=== PATIENT | female | born 1950 | race Hispanic/Latino ===

== ENCOUNTER 2023-06-11 10:20 | Emergency (ER) | payer OTHER, SELFPAY ==
[2023-06-11 10:33] VITALS: BP 124/56
[2023-06-11 11:04] LABS: % Basophils 0.7 % (0-2); % Eosinophils 6.2 % (0-6); % Immature Granulocytes 0.3 % (0-0.5); % Lymphocytes 29.5 % (20.5-51.1); % Monocytes 6.1 % (1.7-9.3); % Neutrophils 57.2 % (42.2-75.2); Absolute Eosinophils 0.4 10^3/uL (0-0.7); Absolute Lymphocytes 1.7 10^3/uL (1.2-3.4); Absolute Monocytes 0.4 10^3/uL (0.1-0.6); Absolute Neutrophils 3.3 10^3/uL (1.4-6.5); Hematocrit 36.1 % (37.0-47.0); Hemoglobin 12.3 g/dL (12.0-16.0); Mean Corp Hgb Conc. 34.1 g/dL (33.0-37.0); Mean Corpuscular Hgb 31.9 pg (27.0-31.0); Mean Corpuscular Volume 93.8 fL (81.0-99.0); Nucleated Red Blood Cells % 0 %; Platelet Count 211 10^3/uL (130-400); Red Blood Cell Count 3.85 10^6/uL (4.20-5.40); Red Cell Dist. Width 13.1 % (11.5-14.5); White Blood Cell Count 5.8 10^3/uL (4.8-10.8)
[2023-06-11 11:18] LABS: ALT (SGPT) 20 U/L (0-35); AST (SGOT) 28 U/L (14-36); Albumin 4.2 g/dl (3.5-5.0); Alkaline Phosphatase 78 U/L (38-126); Blood Urea Nitrogen 25 mg/dl (7-17); Calcium 9.8 mg/dl (8.4-10.2); Carbon Dioxide 28 mmol/L (22-30); Chloride 104 mmol/L (98-107); Glucose 92 mg/dl (70-99); Lipase 112 U/L (23-300); Potassium 4.5 mmol/L (3.5-5.1); Sodium 137 mmol/L (135-145); Total Bilirubin 0.7 mg/dl (0.2-1.3); Total Protein 6.7 g/dl (6.3-8.2); eGFR > 60.00
--- NOTE | 2023-06-11 12:46 | ED.GENMED ---
History of Present Illness
General
Chief Complaint: Abdominal Pain
Source: patient and family
Exam Limitations: none
Time Seen by Provider: 06/11/23 12:34
Nursing documentation reviewed up to this point in time: agreed with
Travel History
Have you had any contact with someone who has COVID-19?: No
Do you have any symptoms of coronavirus? Fever > 100 degrees, chills, cough, shortness of breath, sore throat, loss of taste or smell, muscle aches, or headache?: No
History of Present Illness
History of Present Illness:
73 female accompanied by her daughter acting as html web developer she had a PEG placed in April she gets most of her nutrition for there is p.o. for pleasure, presents with pain on the inside with some constipation also feels some burning into her
throat, they spoke to the visiting nurses who recommended Tylenol today PCP recommended ER evaluation no fevers no vomiting no drainage daughter thinks the tube is working okay, denies any chest pain or shortness of breath
Past History
Past History
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
ED Past Surgical History: Brain (Hydrocephalus)
Social History
Tobacco: Non-smoker
Alcohol: None
Drug: None
Personal:
Living: with family
Employment: Retired
Family History
Family History: Other (Noncontributory)
Review of Systems
Review of Systems
All Other Systems: Not applicable
Constitutional: Reports fatigue; Denies fever
EENT: Reports no symptoms
Respiratory: Reports no symptoms
Cardiac: Reports no symptoms; Denies chest pain or palpitations
ABD/GI: Reports abdominal pain and constipated
: Reports no symptoms
Musculoskeletal: Reports no symptoms
Phy Exam
Physical Exam
Physical Exam:
Physical Exam
General: female nontoxic
Neck: No jaundice
Heart: s1/s2 regular rate and rhythm, no murmur. equal radial pulses.
Lungs: no acute respiratory distress. clear bilaterally
Abdomen: Soft, PEG in stoma appears clean dry and intact without any overt infectious symptoms
Neuro: alert and oriented. no focal neurological deficits
Skin: no rash
Psychiatric: cooperative
Extremities: no edema.
Course
Orders/Labs/Results
Orders:
Orders
06/11/23 10:41
Complete Blood Count/With Diff Urgent
Comprehensive Metabolic Panel Urgent
Lipase Urgent
06/11/23 12:43
0.9% Sodium Chloride 1000 ml [Nss] 1,000 ml IV BOLUS
Iohexol [Omnipaque] See Protocol PO NOW STA
Pantoprazole [Protonix IV] 40 mg IV NOW STA
06/11/23 12:49
EKG [Electrocardiogram (*1)] Routine
Reason for Study: Abdominal Pain
CT Abd/pelvis W Iv Cont Urgent
Comment:
Reason For Exam: Pain at PEG site
EKG- Treatment ONCE
Abnormal Lab Results
06/11/23
10:41
RBC 3.85 L 10^6/uL
(4.20-5.40)
Hct 36.1 L %
(37.0-47.0)
MCH 31.9 H pg
(27.0-31.0)
MPV 11.0 H fL
(7.4-10.4)
Eosinophils % 6.2 H %
(0-6)
BUN 25 H mg/dl
(7-17)
06/11/23 10:41
06/11/23 10:41
Vital Signs
Initial and Last Documented VS:
Initial Vital Signs
Temp Pulse Resp BP Pulse Ox
97.9 F 56 20 124/56 97
06/11/23 10:33 06/11/23 10:33 06/11/23 10:33 06/11/23 10:33 06/11/23 10:33
Last Documented Vital Signs
Temp Pulse Resp BP Pulse Ox
97.9 F 56 20 124/56 97
06/11/23 10:33 06/11/23 10:33 06/11/23 10:33 06/11/23 10:33 06/11/23 10:33
MDM/Problems Addressed
Differential Diagnosis Includes:
Gastritis GERD reflux pain nonspecific abdominal pain constipation infection
MDM/Problems Addressed:
Pain around the tube
Chronic conditions affecting care:
GERD
Acute Exacerbation and/or Progression of Chronic Illness:
GERD
*Radiology
Radiology exam reviewed: preliminary read by ED provider
*Pulse Oximetry
Patient hypoxic: no
*EKG
Interpreted by ED Provider?: Yes
Interpretation: normal
Comparison EKG: no comparison EKG present
Heart Rate: 78
Rate: normal
Rhythm: sinus
QRS Pattern: normal QRS
Ischemia: no ischemia
*Cra Interpretation
Rate: normal
Interpretation: normal
Heart Rate: 78
Rhythm: sinus
*Critical Care Note
Total Time (30-74mins, 75-104mins- exclusive of procedures): Not Applicable
Update Note
Update Note:
Update sounds like some localized pain on the inside of her stomach does have a history of GERD no systemic symptoms, I did review [facility] endoscopy notes no note of any significant pathology when the tube was placed we will try some Protonix check
scan, EKG
3:[address] report noted
Patient resting comfortably no emesis here stable vital signs reviewed reports findings with family is on Zantac, last bowel movement 3 days ago previously on Prilosec before the feeding tube was placed
ED Attending Note
-
Portions of this chart may have been created with voice recognition software.� Occasional wrong word or��sound alike� substitutions may have occurred due to the inherent limitations of voice recognition software.
Discharge Plan
Departure
Patient Disposition: Home (Routine Discharge)
Date of Disposition: 06/11/23
Time of Disposition: 15:33
Patient with high blood pressure during this ER visit?: No
Condition: Good
Discharge Problem:
Abdominal pain, Constipation
Instructions: Acid Reflux and GERD in Adults (DC), Abdominal Pain
Prescriptions:
New
Prilosec 10 mg susp,delayed release for recon
20 mg PO BID Qty: 30 6RF
polyethylene glycol 3350 [Miralax] 17 gram/dose powder
4 g PO DAILY PRN (Reason: Constipation) Qty: 238 0RF
No Action
levothyroxine 50 MCG tablet
50 mcg PO DAILY AT 0700
acetaminophen 325 MG tablet
650 mg PO Q4HPRN PRN (Reason: mild pain, head ache)
famotidine 40 mg Tablet
40 mg PO HS
esomeprazole magnesium [Nexium] 40 mg Capsule,Delayed Release(Dr/Ec)
40 mg PO DAILY@1200
rosuvastatin 10 mg Tablet
10 mg PO DAILY
Xiidra 5 % dropperette
1 drp BOTH EYES BID
nystatin 100,000 unit/mL Suspension
5 ml PO QID Qty: 250 0RF
Rx Instructions:
swish and spit
buspirone 5 mg Tablet
5 mg 2XD
melatonin 5 mg Tablet
5 mg PO HS PRN (Reason: sleep)
aspirin 81 mg Capsule
81 mg PO DAILY
Referrals:
Humberto Crowder MD [Family Provider] - Next open appointment
Interventions
Interventions:
*General Assessment Last Done: 06/11/23 14:25
*Neglect/Abuse Screening Last Done: 06/11/23 14:25
*ED COVID-19 Vaccine History Last Done: 06/11/23 14:25
LW-Zlhtox-Jhiweembut Assessment Last Done: 06/11/23 14:25
[2023-06-11] MEDS: NSS 1000 IV (13:04)
[2023-06-11] MEDS: PROTONIX IV 40 MG IV (13:05)
[2023-06-11 15:10] VITALS: BP 119/61
== END 2023-06-11 16:03 | disposition home or self-care (01) ==
LOC: EMR 10:20
PROVIDERS: Emergency Medicine; EMERGENCY PHYSICIAN Emergency Medicine; FAMILY PHYSICIAN Internal Medicine Geriatric Medicine
DX: R10.9 Unspecified abdominal pain (principal); K59.00 Constipation, unspecified; K21.9 Gastro-esophageal reflux disease without esophagitis; Z93.1 Gastrostomy status
CPT/HCPCS: 99285; 96374; 96361; 74177; 80053; 83690; 85025; 93005; Q9967

== ENCOUNTER → 2023-06-25 15:09 | Outpatient (REF) | payer MEDICARE, OTHER, SELFPAY ==
[2023-06-25 16:01] LABS: Urine Albumin Trace (Neg - Trace); Urine Bilirubin Negative (Negative); Urine Character Very Cloudy (Clear); Urine Color Yellow; Urine Glucose Negative (Negative); Urine Ketone Negative (Negative); Urine Leukocyte Trace (Negative); Urine Nitrite Positive (Negative); Urine Occult Blood Negative (Negative); Urine Urobilinogen Negative (Neg - 1+)
[2023-06-25 16:08] LABS: Urine Bacteria Many (Negative); Urine Red Blood Cell 0-2 /HPF (0-2)
== END ==
LOC: REG 15:09
PROVIDERS: ATTENDING PHYSICIAN Internal Medicine Hospice and Palliative Medicine; FAMILY PHYSICIAN Internal Medicine Geriatric Medicine
DX: N39.0 Urinary tract infection, site not specified (principal)
CPT/HCPCS: 81003; 81015; 87086; 87088; 87186

== ENCOUNTER → 2023-08-30 14:13 | Outpatient (REF) | payer MEDICARE, OTHER, SELFPAY ==
[2023-08-30 15:16] LABS: % Basophils 0.6 % (0-2); % Eosinophils 5.8 % (0-6); % Immature Granulocytes 0.5 % (0-0.5); % Lymphocytes 32.6 % (20.5-51.1); % Monocytes 7.3 % (1.7-9.3); % Neutrophils 53.2 % (42.2-75.2); Absolute Eosinophils 0.4 10^3/uL (0-0.7); Absolute Monocytes 0.5 10^3/uL (0.1-0.6); Absolute Neutrophils 3.3 10^3/uL (1.4-6.5); Hematocrit 35.4 % (37.0-47.0); Hemoglobin 12.3 g/dL (12.0-16.0); Mean Corp Hgb Conc. 34.7 g/dL (33.0-37.0); Mean Corpuscular Hgb 31.8 pg (27.0-31.0); Mean Corpuscular Volume 91.5 fL (81.0-99.0); Mean Platelet Volume 11.2 fL (7.4-10.4); Nucleated Red Blood Cells % 0 %; Platelet Count 179 10^3/uL (130-400); Red Blood Cell Count 3.87 10^6/uL (4.20-5.40); White Blood Cell Count 6.2 10^3/uL (4.8-10.8)
[2023-08-30 15:35] LABS: ALT (SGPT) 30 U/L (0-35); AST (SGOT) 35 U/L (14-36); Albumin 4.3 g/dl (3.5-5.0); Alkaline Phosphatase 91 U/L (38-126); Blood Urea Nitrogen 38 mg/dl (7-17); Carbon Dioxide 29 mmol/L (22-30); Chloride 98 mmol/L (98-107); Glucose 80 mg/dl (70-99); Potassium 4.6 mmol/L (3.5-5.1); Sodium 137 mmol/L (135-145); Total Bilirubin 0.3 mg/dl (0.2-1.3); Total Protein 6.7 g/dl (6.3-8.2); eGFR > 60.00
[2023-08-30 17:00] LABS: Urine Albumin Negative (Neg - Trace); Urine Bilirubin Negative (Negative); Urine Character Clear (Clear); Urine Color Yellow; Urine Glucose Negative (Negative); Urine Ketone Negative (Negative); Urine Leukocyte Negative (Negative); Urine Nitrite Positive (Negative); Urine Occult Blood Negative (Negative); Urine Specific Gravity 1.015 (<1.030); Urine Urobilinogen Negative (Neg - 1+)
[2023-08-30 17:16] LABS: Urine Bacteria Moderate (Negative); Urine Red Blood Cell 0-2 /HPF (0-2)
== END ==
LOC: REG 14:13
PROVIDERS: ATTENDING PHYSICIAN Internal Medicine
DX: E11.9 Type 2 diabetes mellitus without complications (principal); R53.83 Other fatigue; R42 Dizziness and giddiness; R82.90 Unspecified abnormal findings in urine; I95.9 Hypotension, unspecified
CPT/HCPCS: 36415; 80053; 81003; 81015; 85025

== ENCOUNTER → 2023-10-29 11:58 | Outpatient (REF) | payer MEDICARE, OTHER, SELFPAY | LOC: RAD 11:58 | PROVIDERS: ATTENDING PHYSICIAN Nurse Practitioner Family | DX: R35.0 Frequency of micturition (principal); R09.89 Other specified symptoms and signs involving the circulatory and respiratory systems; R11.10 Vomiting, unspecified; R06.89 Other abnormalities of breathing | CPT/HCPCS: 71046; 74177; Q9967 ==

== ENCOUNTER → 2023-11-05 14:06 | Outpatient (REF) | payer MEDICARE, OTHER, SELFPAY ==
[2023-11-05 14:38] LABS: Urine Albumin Negative (Neg - Trace); Urine Bilirubin Negative (Negative); Urine Character Clear (Clear); Urine Color Yellow; Urine Glucose Negative (Negative); Urine Ketone Negative (Negative); Urine Leukocyte Trace (Negative); Urine Nitrite Negative (Negative); Urine Occult Blood Negative (Negative); Urine Urobilinogen Negative (Neg - 1+)
[2023-11-05 15:12] LABS: Urine Squamous Cell >30 /LPF (Few)
[2023-11-05 15:14] LABS: Urine Bacteria Many (Negative); Urine Red Blood Cell 0-2 /HPF (0-2)
== END ==
LOC: REG 14:06
PROVIDERS: ATTENDING PHYSICIAN Nurse Practitioner Family
DX: R35.0 Frequency of micturition (principal)
CPT/HCPCS: 81003; 81015; 87086

== ENCOUNTER → 2024-01-20 15:36 | Outpatient (REF) | payer MEDICARE, SELFPAY ==
[2024-01-20 16:53] LABS: Urine Albumin Negative (Neg - Trace); Urine Bilirubin Negative (Negative); Urine Character Slightly Cloudy (Clear); Urine Color Yellow; Urine Glucose Negative (Negative); Urine Ketone Negative (Negative); Urine Leukocyte Negative (Negative); Urine Nitrite Negative (Negative); Urine Occult Blood Negative (Negative); Urine Urobilinogen Negative (Neg - 1+)
== END ==
LOC: REG 15:36
PROVIDERS: ATTENDING PHYSICIAN Internal Medicine Geriatric Medicine
DX: R30.0 Dysuria (principal); R53.1 Weakness
CPT/HCPCS: 36415; 81003; 87086

== ENCOUNTER → 2024-02-22 11:11 | Outpatient (REF) | payer MEDICARE, OTHER, SELFPAY ==
[2024-02-22 12:25] LABS: Urine Albumin Negative (Neg - Trace); Urine Bilirubin Negative (Negative); Urine Character Clear (Clear); Urine Color Yellow; Urine Glucose Negative (Negative); Urine Ketone Negative (Negative); Urine Leukocyte 2+ (Negative); Urine Nitrite Negative (Negative); Urine Occult Blood Negative (Negative); Urine Urobilinogen Negative (Neg - 1+)
[2024-02-22 12:46] LABS: Urine Bacteria Moderate (Negative); Urine Red Blood Cell 0-2 /HPF (0-2)
== END ==
LOC: REG 11:11
PROVIDERS: ATTENDING PHYSICIAN Internal Medicine Geriatric Medicine
DX: R30.0 Dysuria (principal)
CPT/HCPCS: 81003; 81015; 87086

== ENCOUNTER → 2024-03-14 12:51 | Outpatient (REF) | payer MEDICARE, OTHER, SELFPAY ==
[2024-03-14 14:06] LABS: Urine Albumin Negative (Neg - Trace); Urine Bilirubin Negative (Negative); Urine Character Clear (Clear); Urine Color Yellow; Urine Glucose Negative (Negative); Urine Ketone Negative (Negative); Urine Leukocyte Negative (Negative); Urine Nitrite Negative (Negative); Urine Occult Blood Negative (Negative); Urine Urobilinogen Negative (Neg - 1+)
== END ==
LOC: REG 12:51
PROVIDERS: ATTENDING PHYSICIAN Internal Medicine Geriatric Medicine
DX: E11.9 Type 2 diabetes mellitus without complications (principal); I10 Essential (primary) hypertension; E78.2 Mixed hyperlipidemia; I11.9 Hypertensive heart disease without heart failure; E03.8 Other specified hypothyroidism; K21.9 Gastro-esophageal reflux disease without esophagitis; D64.9 Anemia, unspecified; G12.21 Amyotrophic lateral sclerosis; E66.09 Other obesity due to excess calories; M85.89 Other specified disorders of bone density and structure, multiple sites; K59.09 Other constipation; E55.9 Vitamin D deficiency, unspecified; R41.3 Other amnesia; R26.89 Other abnormalities of gait and mobility; Z13.31 Encounter for screening for depression
CPT/HCPCS: 81003

== ENCOUNTER 2024-07-10 14:23 | Inpatient (IN) | payer MEDICARE, OTHER, SELFPAY ==
[2024-07-10] VITALS (16 sets, daily range): BP systolic 106–147; BP diastolic 59–87; PULSE 2–73; BMI 19.9; BMI 22.6
--- NOTE | 2024-07-10 12:03 | EDRN ---
Dr. Low currently at the pts bedside speaking with the pt daughter
--- NOTE | 2024-07-10 12:06 | EDRN ---
the pt was placed on non rebreather at 15L due to Sp02 not responding to 6L NC, Sp02 was in the 80's, with non rebreather Sp02 is 98%, respiratory was called for Bipap per Dr. Low
[2024-07-10] MEDS: DUONEB 3 ML INH ×2 (12:11→17:19)
--- NOTE | 2024-07-10 12:11 | ED.GENMED ---
History of Present Illness
General
Chief Complaint: Breathing Problem
Source: family and ambulance crew
Time Seen by Provider: 07/10/24 11:54
History of Present Illness
History of Present Illness:
74-year-old female brought to the emergency room by ambulance for hypoxia and poor respiratory effort. Patient has a known diagnosis of ALS. Family noted today she seemed to be breathing less than normal. They also felt like her secretions seemed
thicker than normal. Visiting nurse placed the patient on BiPAP and. She typically uses this on a as needed basis. Patient does have a PEG tube. She has expressed to her family she does not want a tracheostomy or permanent ventilator.
Past History
Past History
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
ED Past Surgical History: Brain (Hydrocephalus)
Social History
Tobacco: Non-smoker
Alcohol: None
Drug: None
Personal:
Living: with family
Employment: Retired
Family History
Family History: Other (Noncontributory)
Phy Exam
Physical Exam
Physical Exam:
General: Eyes open but nonresponsive
Vitals: Hypoventilating, hypoxic without supplemental oxygen
Head: Atraumatic
Eyes: Pupils equal, EOMI
Throat: Airway intact, no exudates
Neck: Trachea midline
Lungs: Decreased breath sounds due to poor respiratory effort
Heart: Regular rate, no murmurs
Abd: Soft, no apparent tenderness, feeding tube in place, No pulsatile mass
Neuro: No movement to commands or withdraw from pain
Skin: Warm, dry, no rash
Extremities: pulses equal b/l, no edema
Scores
Heart Failure Risk
Heart Failure Risk Score: Not Applicable
Course
Orders/Labs/Results
Orders:
Orders
07/10/24
Electrocardiogram (*1) Stat
Reason for Study: Chest Pain
Comment: DONE
07/10/24 12:06
Acetylcysteine 10% [Mucomyst 10%] 4 ml INH R NOW STA
Ipratropium/Albuterol Sulfate [Duoneb] 3 ml INH R NOW STA
CR Chest Portable - 1 View Urgent
Comment:
Reason For Exam: hypoxia
Reason Study Needs to be Portable: Unable to Transport
07/10/24 12:07
Bipap [RESP] Urgent
Patient to use own unit?: No
Inspiratory Pressure (cm H2O): 15
Expiratory Pressure (cm H2O): 5
07/10/24 12:11
Basic Metabolic Panel Urgent
COVID-19 Antigen Urgent
Source: Nasal Swab
Complete Blood Count/With Diff Urgent
Troponin I Urgent
Venous Blood Gas Urgent
%Oxygen/Room Air: 4L
Influenza A+B Rapid Molecular Urgent
ASHLEIGH Source: Nasal Swab
Specimen Description:
07/10/24 13:11
Ampicillin/Sulbactam 3 G [Unasyn] 3 gm 0.9% Sodium Chloride 100 ml [Nss] 100 ml IV NOW
Abnormal Lab Results
07/10/24
12:11
WBC 15.8 H 10^3/uL
(4.8-10.8)
RBC 4.02 L 10^6/uL
(4.20-5.40)
MCV 99.5 H fL
(81.0-99.0)
MCH 32.3 H pg
(27.0-31.0)
MCHC 32.5 L g/dL
(33.0-37.0)
Abs Immat Gran (auto) 0.1 H 10^3/uL
(0-0.05)
Absolute Neuts (auto) 13.5 H 10^3/uL
(1.4-6.5)
Absolute Lymphs (auto) 1.1 L 10^3/uL
(1.2-3.4)
Absolute Monos (auto) 0.9 H 10^3/uL
(0.1-0.6)
Immature Gran % 0.7 H %
(0-0.5)
Neutrophils % 85.6 H %
(42.2-75.2)
Lymphocytes % 7.2 L %
(20.5-51.1)
VBG pCO2 77 H* mmHg
(35-48)
VBG pO2 54 H mmHg
(30-50)
VBG HCO3 39.7 H mmol/L
(22-27)
Sodium 132 L mmol/L
(135-145)
Chloride 90 L mmol/L
(98-107)
Carbon Dioxide 39 H mmol/L
(22-30)
BUN 35 H mg/dl
(7-17)
Creatinine 0.4 L mg/dL
(0.6-1.0)
Glucose 202 H mg/dl
(70-99)
07/10/24 12:11
07/10/24 12:11
Vital Signs
Initial and Last Documented VS:
Initial Vital Signs
Temp Pulse Resp BP Pulse Ox
98.5 F 88 16 147/87 88
07/10/24 11:54 07/10/24 11:54 07/10/24 11:54 07/10/24 11:54 07/10/24 11:54
Last Documented Vital Signs
Temp Pulse Resp BP Pulse Ox
98.5 F 84 16 135/76 98
07/10/24 12:04 07/10/24 12:04 07/10/24 12:04 07/10/24 12:04 07/10/24 12:04
MDM/Problems Addressed
Differential Diagnosis Includes:
aspiration, viral illness, pneumonia, progression of dz
MDM/Problems Addressed:
Patient presents with decreased work of breathing and hypoxia. She did seem to i have some improvement to tolerate BiPAP. Discussed with the family what to do moving forward if the patient does not improve. The patient had made it clear to her
family she did not want to have a tracheostomy or have long-term ventilation. Given this wish I do not believe intubation would be with the patient with desire as it is most certainly going to lead to chronic ventilatory failure and the need for
tracheostomy. We agreed that we will treat the patient with BiPAP, IV antibiotics for potential pneumonia and other supportive care.
*Radiology
Radiology exam reviewed: preliminary read by ED provider and radiology read reviewed
*Pulse Oximetry
Patient hypoxic: yes
*Critical Care Note
Total Time (30-74mins, 75-104mins- exclusive of procedures): 38 min
comment:
Critical care statement: A total of 38 minutes of critical care time was provided for this patient. This includes management of unstable vital signs, evaluation of the patient at bedside, reviewing the patient�s pertinent medical records, discussion
with consultants, review of old EKGs and review of pertinent medical records. This time with separate from time utilized to perform the aforementioned documented procedures
Patient Management
Social determinants of health affecting care: Strong social support
ED Attending Note
-
Portions of this chart may have been created with voice recognition software.� Occasional wrong word or��sound alike� substitutions may have occurred due to the inherent limitations of voice recognition software.
Discharge Plan
Departure
Patient Disposition: Admit
Date of Disposition: 07/10/24
Time of Disposition: 13:09
Admit to: IMU
Presentation/result/management discussed w/ accepting MD/DO: Hospitalist
Condition: Serious
Discharge Problem:
ALS (amyotrophic lateral sclerosis), Respiratory failure
Prescriptions:
No Action
levothyroxine 50 MCG tablet
50 mcg feeding tube DAILY AT 0700
rosuvastatin 10 mg Tablet
10 mg feeding tube DAILY
aspirin 81 mg Tablet,Delayed Release (Dr/Ec)
81 mg feeding tube DAILY
acetaminophen [Tylenol Extra Strength] 500 mg Tablet
1,000 mg feeding tube BID
glycopyrrolate 1 mg Tablet
1 mg feeding tube TIDPRN PRN (Reason: secration)
Neurobion Tablet
1 tab feeding tube DAILY
riluzole 50 mg Tablet
50 mg feeding tube BID
estradiol [Estrace] 0.01 % (0.1 mg/gram) Cream
1 appful VAGINAL Q48H
escitalopram oxalate [Lexapro] 10 mg Tablet
10 mg feeding tube DAILY
guaifenesin 200 mg/5 mL Liquid
200 mg PO Q4HPRN PRN (Reason: cou)
Refresh Optive 0.5-0.9 % Drops
1 drp BOTH EYES BIDPRN PRN (Reason: dryness)
omeprazole 20 mg Tablet,Delayed Release (Dr/Ec)
20 mg PO BID
Rx Instructions:
peg tube
baclofen 5 mg Tablet
5 mg feeding tube HS
Referrals:
Humberto Crowder MD [Family Provider] -
Interventions
Interventions:
*Risk Screen - Suicide Last Done: 07/10/24 11:54
*General Assessment Last Done: 07/10/24 11:54
*Neglect/Abuse Screening Last Done: 07/10/24 11:54
ED- Fall Risk Assessment Last Done: 07/10/24 12:04
*ED COVID-19 Vaccine History Last Done: 07/10/24 12:04
ED- Cardiac Assessment Last Done: 07/10/24 12:04
ED- Pulmonary Assessment Last Done: 07/10/24 12:04
Discharge Date and Time
Print Language: H[place] KONGER
[2024-07-10] MEDS: MUCOMYST 10% 4 ML INH (12:12)
--- NOTE | 2024-07-10 12:18 | EDRN ---
respiratory at the pts bedside and the pt has been placed on Bipap 15/5 6L rate of 12 and Sp02 is currently 94%, the pts family is at the pts bedside
[2024-07-10 12:27] LABS: % Basophils 0.3 % (0-2); % Eosinophils 0.5 % (0-6); % Immature Granulocytes 0.7 % (0-0.5); % Lymphocytes 7.2 % (20.5-51.1); % Monocytes 5.7 % (1.7-9.3); % Neutrophils 85.6 % (42.2-75.2); Absolute Basophils 0.1 10^3/uL (0-0.2); Absolute Eosinophils 0.1 10^3/uL (0-0.7); Absolute Immature Granulocytes 0.1 10^3/uL (0-0.05); Absolute Lymphocytes 1.1 10^3/uL (1.2-3.4); Absolute Monocytes 0.9 10^3/uL (0.1-0.6); Absolute Neutrophils 13.5 10^3/uL (1.4-6.5); Mean Corp Hgb Conc. 32.5 g/dL (33.0-37.0); Mean Corpuscular Hgb 32.3 pg (27.0-31.0); Mean Corpuscular Volume 99.5 fL (81.0-99.0); Mean Platelet Volume 9.8 fL (7.4-10.4); Nucleated Red Blood Cells % 0 %; Platelet Count 259 10^3/uL (130-400); Red Blood Cell Count 4.02 10^6/uL (4.20-5.40); Red Cell Dist. Width 12.8 % (11.5-14.5); White Blood Cell Count 15.8 10^3/uL (4.8-10.8)
[2024-07-10 12:42] LABS: Blood Urea Nitrogen 35 mg/dl (7-17); Calcium 9.9 mg/dl (8.4-10.2); Carbon Dioxide 39 mmol/L (22-30); Chloride 90 mmol/L (98-107); Estimated Creatinine Clearance 69 ml/min; Glucose 202 mg/dl (70-99); Potassium 4.6 mmol/L (3.5-5.1); Sodium 132 mmol/L (135-145); eGFR > 60.00
[2024-07-10 12:43] LABS: Venous Blood Gas B.E. 10.2 mmol/L (-4 to +4); Venous Blood Gas HCO3 39.7 mmol/L (22-27); Venous Blood Gas O2 Sat % 82.7 %; Venous Blood Gas pH 7.32 (7.32-7.43); Venous Blood Gas pO2 54 mmHg (30-50)
[2024-07-10 12:45] LABS: Venous Blood Gas O2 Therapy 4L; Venous Blood Gas pCO2 77 mmHg (35-48)
[2024-07-10 12:46] LABS: COVID-19 Antigen Negative (Negative)
[2024-07-10 12:54] LABS: Troponin I < 0.012 ng/ml
--- NOTE | 2024-07-10 13:00 | EDRN ---
Dr. Low currently at the pts bedside
[2024-07-10] MEDS: UNASYN IV ×2 (13:21→19:45)
--- NOTE | 2024-07-10 13:38 | HPS.HSE ---
Addendum entered and electronically signed by Arvind Lai MD 07/10/24 15:32:
I saw and examined the patient.
The PREPLEATER or PA's note was reviewed and I agree with the note.
Comment:
74-year-old female with past medical history of polymyalgia rheumatica, hypothyroidism, type 2 diabetes, hypertension, hyperlipidemia, GERD, anxiety, ALS presented to us with short of breath, hypoxia at home. Patient was noted to have O2 in the mid
70s on room air without great improvement on BiPAP. Of note, has been having productive cough with dark sputum as per family. Further associated symptoms include night sweats, headache. Otherwise review of systems as per daughter when
unremarkable. Patient is nonverbal and therefore collateral given by family. Patient does take BiPAP as needed as needed when the family feels like it is needed. Is 96% on BiPAP, 6 L saturating 88%, blood pressure 113/69, respiratory rate 13,
pulse 79. Afebrile. Rhonchi noted on mid to left lower lung zones. COVID and influenza negative. White count 15.8, gas notable for pCO2 of 77., Sodium 132. Possible left basilar opacity which could be atelectasis or scarring versus
consolidation.
Plan�continue feeds although will need sacral BiPAP during feeding times. Continue BiPAP for now and overnight. Continue antibiotics, broaden if decompensating. Follow-up cultures. Continue nebulizers. Vest. CT chest with IV contrast to
evaluate. 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 Most likely secondary to pulmonary pathophysiology.
Original Note:
Family Physician
-
Family Physician: Humberto Crowder
Chief Complaint
-
cough
sob
History of Present Illness
74-year-old female with PMH for polymyalgia rheumatica, hypothyroidism, type 2 diabetes, hypertension, hyperlipidemia, GERD, anxiety, ALS presented to us with short of breath, hypoxia at home. Her oxygen was noted to be in 70s on room air with no
improvement on bi PAP. For past few days she has been having cough with thick dark brown sputum. Patient was complaining of headache denies dizzy or syncope. Patient denies chest pain. She was sweaty at night. Patient denied abdominal pain,
nausea, vomiting. She was having some diarrhea on Wednesday. denied dysuria hematuria. patient is non verbal and communicates with gesture. patient uses v pap as needed. patient is bed bound.
upon arrival, she is 92 on BiPAP. chest x ray with the impression of Ill-defined left basilar opacity which may represent a combination of atelectasis/scarring with small effusion or acute airspace consolidation also within the differential
Patient received Unasyn and nebulizer treatment in ER. Admitting for further management
Medical History
Past Medical History
Past Medical History: Reports Other
Additional Past Medical History:
Polymyalgia rheumatica
Hypothyroidism
Type 2 diabetes
Hypertension
Hyperlipidemia
Hypercalcemia
Headache syndrome
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
GERD
Hypertension
Anxiety
Hydrocephalus
Constipation
Memory loss
Balance disorder
ALS
Past Surgical History: Reports Other
Additional Past Surgical History:
DOCUMENTATION SUPERVISOR shunt placement
Shoulder surgery
Carpal tunnel surgery
Left ankle surgery
PEG tube placed
Social History
Tobacco: Non-smoker
Alcohol: None
Drug: None
Living: With Family
Family History
Family History: Not pertinent
Allergies / Home Medications
Allergies reflects when Allergies were last updated in [employer]..
Home Medications with original date entered in [employer].
Allergy/Medication List:
Allergies
Allergy/AdvReac Type Severity Reaction Status Date / Time
atorvastatin Allergy Rash Verified 06/11/23 10:35
codeine Allergy Unknown Verified 06/11/23 10:35
pollen extracts Allergy Unknown Verified 06/11/23 10:35
tree and shrub pollen Allergy Unknown Verified 06/11/23 10:35
Home Medications
levothyroxine 50 mcg tablet 50 mcg feeding tube DAILY AT 0700 Thyroid 01/22/17
rosuvastatin 10 mg tablet 10 mg feeding tube DAILY High Cholesterol 03/15/23
acetaminophen 500 mg tablet (Tylenol Extra Strength) 1,000 mg feeding tube BID 07/10/24
aspirin 81 mg tablet,delayed release 81 mg feeding tube DAILY 07/10/24
baclofen 5 mg tablet 5 mg feeding tube HS 07/10/24
carboxymethylcellulose 0.5 %-glycerin 0.9 % eye drops (Refresh Optive) 1 drp BOTH EYES BIDPRN PRN dryness 07/10/24
escitalopram oxalate 10 mg tablet (Lexapro) 10 mg feeding tube DAILY 07/10/24
estradiol 0.01% (0.1 mg/gram) vaginal cream (Estrace) 1 appful vaginal Q48H 07/10/24
glycopyrrolate 1 mg tablet 1 mg feeding tube TIDPRN PRN secration 07/10/24
guaifenesin 200 mg/5 mL oral liquid 200 mg PO Q4HPRN PRN cou 07/10/24
omeprazole 20 mg tablet,delayed release 20 mg PO BID 07/10/24
riluzole 50 mg tablet 50 mg feeding tube BID 07/10/24
vitamins B1 B6 B12 tablet 1 tab feeding tube DAILY 07/10/24
Review of Systems
-
Constitutional: Reports Night Sweats
EENT: Reports No Symptoms
Respiratory: Reports Cough and Trouble Breathing
Cardiac: Reports No Symptoms
Abdomen/GI: Reports No Symptoms
: Reports No Symptoms
Musculoskeletal: Reports No Symptoms
Skin: Reports No Symptoms
Neurological: Reports No Symptoms
Endocrine: Reports No Symptoms
Hematologic/Lymphatic: Reports No Symptoms
Psych: Reports No Symptoms
Physical Exam
Vital Signs
Vital Signs
Temp Pulse Resp BP Pulse Ox
98.5 F 84 16 135/76 98
07/10/24 12:04 07/10/24 12:04 07/10/24 12:04 07/10/24 12:04 07/10/24 12:04
Physical Exam
General: Well Developed, Well Nourished and No Apparent Distress
HEENT: NormoCephalic, Moist mucous membranes and Atraumatic
Respiratory: Rhonchi
Cardiac: S1/S2 and Regular Rhythm; No Murmur or Rub
GI: Soft, Non Tender, Non Distended and Normal Bowel Sounds; No Organomegaly
Rectal: Deferred by Provider
Musculoskeletal: No Clubbing, No Cyanosis and No Edema
Skin: No Rash
Neuro: AO x 3 and Nonfocal/grossly intact
Psych: Calm
Laboratory Results
-
07/10/24 12:11
07/10/24 12:11
Laboratory Results
Troponin I < 0.012 ng/ml 07/10/24 12:11
Data Reviewed
-
Diagnostic Radiology: Report Reviewed by me
Lab Data: Labs Reviewed by me
Impression/Plan
-
# Acute hypoxic respiratory failure likely secondary to left lower lobe infiltrate likely aspiration
-Patient is requiring BiPAP
-Unasyn continued
-WBCs 15.8
-COVID and flu negative
-Chest x-ray with impression of Ill-defined left basilar opacity which may represent a combination of atelectasis/scarring with small effusion or acute airspace consolidation also within the differential.Bilateral DOCUMENTATION SUPERVISOR shunt catheters.
-continue supplemental oxygen to keep sat greater than 92
-Wean as tolerated
-Nebs as needed for short of breath and wheezing
-sputum culture, legionella urine and strep pneumoniae
# Hyponatremia
-Sodium 132
-Continue to monitor
#Depression/anxiety
-Continue citalopram
#HLD: continue statin
#GERD
-Omeprazole continue
#hxt of ALS
-on riluzole
#Hypothyroidism: cont Levoxyl
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
#on Tube Feed Nutren 1.5 1 can four times a day.
nutrition consulted.
-pause Bipap, while on Tube feed.
FULL/Lovenox
--- NOTE | 2024-07-10 14:33 | EDRN ---
hospitalist currently at the pts bedside
--- NOTE | 2024-07-10 16:10 | EDRN ---
the pts orders have been processed, pharmacy notified by this RN
--- NOTE | 2024-07-10 17:49 | EDRN ---
this RN and Jodi RN entered the pts room and changed the pts brief and pad and repositioned the pt
[2024-07-10] MEDS: LOVENOX 40 MG SC (18:18)
--- NOTE | 2024-07-10 23:00 | PTCARENOTE ---
Rec'd pt from ER via stretcher on monitor & bipap accomp by RN & resp therapist, dtr at bedside & updated on care; pt nonverbal,no movement of extremities,blinks eyes only, nonverbal at baseline, SR, bp stable, + pulses, skin warm/dry, O2 via bipap
15/5 w/ 5 liters o2 , sat 96, lungs decr in bases, hypo bowel sounds, no bm, abd soft, peg clamped for meds,no vomiting, inc of urine- purewick placed
[2024-07-10] MEDS: LIORESAL 5 MG TUBE (23:34)
[2024-07-10] MEDS: DUONEB INH (23:59)
[2024-07-11] VITALS (26 sets, daily range): BP systolic 93–144; BP diastolic 50–77; PULSE 2–77; BMI 22.0
--- NOTE | 2024-07-11 | PTCARENOTE ---
JEMIMA eaton done, when doing property list , pt's dtr stated that the pt has a retainer when she got to the hospital, she stated that it was taken out in the ER, the retainer did not come up with pt, called the ER- it couldn't be found
[2024-07-11] MEDS: UNASYN IV ×4 (01:36→20:33)
[2024-07-11 03:49] LABS: Hematocrit 33.9 % (37.0-47.0); Hemoglobin 11.3 g/dL (12.0-16.0); Mean Corp Hgb Conc. 33.3 g/dL (33.0-37.0); Mean Corpuscular Hgb 32.1 pg (27.0-31.0); Mean Corpuscular Volume 96.3 fL (81.0-99.0); Mean Platelet Volume 10.1 fL (7.4-10.4); Platelet Count 238 10^3/uL (130-400); Red Blood Cell Count 3.52 10^6/uL (4.20-5.40); Red Cell Dist. Width 12.9 % (11.5-14.5); White Blood Cell Count 7.6 10^3/uL (4.8-10.8)
--- NOTE | 2024-07-11 04:00 | PTCARENOTE ---
santos reviewed, inc sanju amt urine,purewick replaced
[2024-07-11 04:14] LABS: Blood Urea Nitrogen 34 mg/dl (7-17); Calcium 9.9 mg/dl (8.4-10.2); Carbon Dioxide 36 mmol/L (22-30); Chloride 94 mmol/L (98-107); Estimated Creatinine Clearance 58 ml/min; Glucose 104 mg/dl (70-99); Potassium 4.2 mmol/L (3.5-5.1); Sodium 134 mmol/L (135-145); eGFR > 60.00
[2024-07-11] MEDS: SYNTHROID 50 MCG TUBE (05:25)
[2024-07-11] MEDS: DUONEB 3 ML INH ×4 (07:12→19:48)
--- NOTE | 2024-07-11 08:19 | VNURNOTE ---
Chart reviewed. Patient is [facility] with [facility], OT. Will continue to follow hospital course and DC plans.
--- NOTE | 2024-07-11 08:40 | CON.PUL ---
Consultation
Consultation Request
Date/Time Consultation Requested: 07/11/2024728
Date/Time Consultation Performed: 07/11/2024829
Requesting Provider: Dr. Lai
Performing Provider: Dr. Tracy
Reason for Consultation: Hypoxia
Medical History
-
Chief Complaint: Shortness of breath
History of Present Illness:
74-year-old female non-smoker with a past medical history of ALS, GERD, anxiety, DM type II, history of cryptococcal meningitis, hypothyroidism, hydrocephalus s/p SUBWAY GUARD shunt, history of sleep apnea and PMR who presents with shortness of breath.
Patient uses BiPAP at home. Also follows with palliative care. She was hypoxic at home with SpO2 in the mid 70s on room air without improvement on BiPAP. Also been having a productive cough with dark sputum as per family. She uses a BiPAP as
needed at home. In the ER she was afebrile to 98.5 �F, pulse rate 88, respiratory rate 16, BP 147/87 and saturating 88% on 6 L/min. Saturations improved to 98% on a nonrebreather. Labs showed leukocytosis to 15.8, Hb 13, blood gas with acute on
chronic hypercapnia with pH 7.32, pCO2 77, serum sodium 132, creatinine 0.4, glucose 202, troponin negative at <0.012, and COVID antigen negative. Flu A/B swab also negative and blood cultures were collected. CXR showed low lung volumes with
possible left basilar opacity. Subsequent CT chest showed a mild�moderately elevated left hemidiaphragm with compressive atelectasis with no obvious pneumonia. She was given nebulized acetylcysteine in the ER with DuoNebs and Unasyn. She was
admitted to the IMU for further care and pulmonary service consulted for additional management/recommendations.
When I saw the patient this morning she was resting in bed in no acute distress. Patient's roll repairer as well as the daughter, Madina, were at bedside. Patient is currently on 2 L/min nasal cannula saturating 94% with heart rate 88 and BP 117/75.
Patient has audible rhonchorous breath sounds although is in no acute distress. Patient is nonverbal as she is unable to phonate given her history of ALS. She was on BiPAP overnight on 15/5cmH2O bled with 5 L/min.
PMHx: DM type II, history of cryptococcal meningitis, hypothyroidism, hydrocephalus s/p SUBWAY GUARD shunt, mixed hyperlipidemia, sleep apnea, history of PMR, nonverbal due to ALS with significant respiratory muscle weakness, GERD, anxiety
PSHx: Shoulder surgery, carpal tunnel surgery, left ankle surgery due to a broken ankle, left SUBWAY GUARD shunt with revision (01/2017), right SUBWAY GUARD shunt (09/2017), PEG tube (03/2023)
Past Medical History
Past Medical History: Other (Above as per HPI)
Past Surgical History: Other (Above as per HPI)
Social History
Tobacco: Non-smoker
Alcohol: None
Drug: None
Family History
Family History: Other (Father: COPD; mother: Cirrhosis; Brother: Thyroid disease)
Allergies / Home Medications
Allergies
Allergy/AdvReac Type Severity Reaction Status Date / Time
atorvastatin Allergy Rash Verified 06/11/23 10:35
codeine Allergy Unknown Verified 06/11/23 10:35
pollen extracts Allergy Unknown Verified 06/11/23 10:35
tree and shrub pollen Allergy Unknown Verified 06/11/23 10:35
Home Medications
�Medication �Instructions �Recorded �Confirmed �Last Taken �Type
levothyroxine 50 mcg tablet 50 mcg feeding tube DAILY AT 0700 01/22/17 07/10/24 07/10/24 History
Thyroid
rosuvastatin 10 mg tablet 10 mg feeding tube DAILY High 03/15/23 07/10/24 07/10/24 History
Cholesterol
acetaminophen 500 mg tablet 1,000 mg feeding tube BID 07/10/24 07/10/24 07/10/24 History
(Tylenol Extra Strength)
aspirin 81 mg tablet,delayed 81 mg feeding tube DAILY 07/10/24 07/10/24 07/10/24 History
release
baclofen 5 mg tablet 5 mg feeding tube HS 07/10/24 07/10/24 Unknown History
carboxymethylcellulose 0.5 1 drp BOTH EYES BIDPRN PRN dryness 07/10/24 07/10/24 Unknown History
%-glycerin 0.9 % eye drops
(Refresh Optive)
escitalopram oxalate 10 mg tablet 10 mg feeding tube DAILY 07/10/24 07/10/24 07/10/24 History
(Lexapro)
estradiol 0.01% (0.1 mg/gram) 1 appful vaginal Q48H 07/10/24 07/10/24 Unknown History
vaginal cream (Estrace)
glycopyrrolate 1 mg tablet 1 mg feeding tube TIDPRN PRN 07/10/24 07/10/24 Unknown History
secration
guaifenesin 200 mg/5 mL oral liquid 200 mg PO Q4HPRN PRN cou 07/10/24 07/10/24 07/10/24 History
omeprazole 20 mg tablet,delayed 20 mg PO BID 07/10/24 07/10/24 07/10/24 History
release
riluzole 50 mg tablet 50 mg feeding tube BID 07/10/24 07/10/24 07/10/24 History
vitamins B1 B6 B12 tablet 1 tab feeding tube DAILY 07/10/24 07/10/24 07/10/24 History
Review of Systems
-
Unable to Obtain full review of systems at this time due to: Patient Non Verbal
Vitals / Labs / Diagnostic Testing
Vital Signs
Temp Pulse Resp BP Pulse Ox
98.9 F 42 12 93/55 93
07/11/24 08:11 07/11/24 07:17 07/11/24 07:17 07/11/24 06:03 07/11/24 07:41
Lab Data
07/11/24 03:17
07/11/24 03:17
Microbiology
07/11/24 00:19 Urine Legionella Urinary Antigen - Final
Negative for Legionella pneumophila Serogroup 1 antigen.
A negative result does not rule out the possiblity of
Legionella infection due to other serogroups or species of
Legionella. Clinical correlation is recommended.
07/11/24 00:19 Urine Streptococcus pneumoniae Antigen (M - Final
Negative for Streptococcus pneumoniae antigen.
A negative result does not exclude infection with
Streptococcus pneumoniae. Clinical correlation is
recommended.
07/10/24 12:11 Nasal Swab Influenza Types A & B (KARIE) - Final
Negative for Influenza A & B, NAAT
Negative results must be combined with clinical observations
and patient history.
Nucleic Acid Amplification test (NAAT)performed on the
[employer] platform.
Diagnostic Testing:
Physical Exam
-
HEENT: Normocephalic and Anicteric
Cardiovascular: S1/S2 and Peripheral Edema (negative)
Respiratory: Wheeze (negative), Rhonchi (negative), Non-Labored Respirations and Other (Coarse breath sounds heard bilaterally)
GI: Soft, Non Distended, Non Tender and Normal Bowel Sounds
Neurology: Awake, Alert and Tremors (negative)
Skin: Warm and Dry
General: Respiratory Distress (negative), Comfortable, Fever (negative) and Chills (negative)
Assessment
-
Assessment: 74-year-old female non-smoker with a past medical history of ALS, GERD, anxiety, DM type II, history of cryptococcal meningitis, hypothyroidism, hydrocephalus s/p SUBWAY GUARD shunt, history of sleep apnea and PMR who presents with shortness of
breath. Patient uses BiPAP at home. Also follows with palliative care. She was hypoxic at home with SpO2 in the mid 70s on room air without improvement on BiPAP. Also been having a productive cough with dark sputum as per family. She uses a
BiPAP as needed at home. In the ER she was afebrile to 98.5 �F, pulse rate 88, respiratory rate 16, BP 147/87 and saturating 88% on 6 L/min. Saturations improved to 98% on a nonrebreather. Labs showed leukocytosis to 15.8, Hb 13, blood gas with
acute on chronic hypercapnia with pH 7.32, pCO2 77, serum sodium 132, creatinine 0.4, glucose 202, troponin negative at <0.012, and COVID antigen negative. Flu A/B swab also negative and blood cultures were collected. CXR showed low lung volumes
with possible left basilar opacity. Subsequent CT chest showed a mild�moderately elevated left hemidiaphragm with compressive atelectasis with no obvious pneumonia. She was given nebulized acetylcysteine in the ER with DuoNebs and Unasyn. She was
admitted to the IMU for further care and pulmonary service consulted for additional management/recommendations.
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
Impression:
#Shortness of breath with suspected acute bronchitis/URI in setting of ALS
#Acute anemia
#Acute respiratory failure with hypoxia + hypercapnia
#Hypochloremic, hyponatremia
#Metabolic alkalosis as compensation for chronic respiratory acidosis
#ALS on BiPAP at home
#DM type II
#Reported history of sleep apnea
#History of PMR
#GERD
#Anxiety
#Hydrocephalus
Plan:
- Patient has no evidence of pneumonia on CT chest and appears to be experiencing acute bronchitis causing her shortness of breath/hypoxia in the setting of ALS
- Continue with antibiotics, currently on Unasyn
- Send off sputum Cx, and follow-up blood cultures collected on 07/10/2024
- Continue Robinul prn otherwise I will start scopolamine patch as long as secretions are thin
- Pulmonary toilet is hernandez � start nebulized 3% BID with prn 3% for additional assistance with expectoration with DuoNebs QID and deep NT suctioning after 3% treatments
- Continue with supplemental oxygen and maintain SpO2 >90-94%, weaning down O2 dose as tolerated
- Continue aspiration precautions keeping HOB >30-45�
- Patient gets nutrition through PEG tube which is okay to continue for now unless respiratory status deteriorates further
- prn nebulized bronchodilators - not currently bronchospastic
- Check NIF + vital capacity BID for now if pt can appropriately perform this testing
- Patient is currently refusing tracheostomy at this time
- Trend blood gas to assure pH and pCO2 remain stable
- Continue riluzole
- Continue to trend serum sodium with goal 135�145
- Replete electrolytes with K>4, Mg>2
- Trend H/H and transfuse if needed to keep Hb>7g/dL; keep plt>20k, unless there is concern for bleeding then keep plt>50k
- Maintain euglycemia with goal BG >100 and <180
- DVT ppx
Pulmonary service will continue to follow along.
Data:
CT chest with IV contrast 07/10/2024: Low lung volumes with mild to moderate elevation of the left hemidiaphragm causing compressive atelectasis on the left lower lobe, and mild bibasilar subsegmental atelectasis.
Total time spent today was 58 minutes for this encounter. Time includes reviewing laboratory test/imaging results, reviewing pertinent medical records, obtaining and reviewing medical history, performing an appropriate exam, ordering medications,
tests and procedures. Time also includes documentation of this encounter, coordinating patient care and communicating with other healthcare professionals. Total time does not include separately billed tests performed on this date of service.
[2024-07-11] MEDS: CRESTOR 10 MG TUBE (08:41)
[2024-07-11] MEDS: B COMPLEX w/VITAMIN C 1 CAPLET TUBE (08:41)
[2024-07-11] MEDS: ASPIR LOW (ENTERIC COATED) 81 MG PO (08:41)
[2024-07-11] MEDS: LEXAPRO 10 MG TUBE (08:41)
[2024-07-11 09:02] LABS: Venous Blood Gas B.E. 11.4 mmol/L (-4 to +4); Venous Blood Gas HCO3 37.8 mmol/L (22-27); Venous Blood Gas O2 Sat % 97.9 %; Venous Blood Gas pCO2 57 mmHg (35-48); Venous Blood Gas pH 7.43 (7.32-7.43); Venous Blood Gas pO2 157 mmHg (30-50)
--- NOTE | 2024-07-11 10:20 | PTCARENOTE ---
pt opens eyes. nonverbal. nc2l. breath sounds diminished. peg tube in place bolus feeding given. pt daughters at bedside reviewed pt condition and plan of care. pt family brought in bolus tube feed.
--- NOTE | 2024-07-11 12:55 | PTCARENOTE ---
nt suctioned pt for some thick yellow. sample sent to lab
[2024-07-11] MEDS: SODIUM CHLORIDE 3% FOR INHALATION 1 VIAL INH ×2 (14:16→19:47)
--- NOTE | 2024-07-11 14:42 | W.PN.HOSP.TC ---
Today's Communication/Plan
-
nebs
can cont abx for now
stop glycopyrrolate
Vest therapy
pulm consulted
BiPAP at night
Assessment / Plan
Assessment / Plan
Physical Exam
General: Well Developed, Well Nourished and No Apparent Distress; on 2L NC
HEENT: NormoCephalic, Moist mucous membranes and Atraumatic
Respiratory: Rhonchi
Cardiac: S1/S2 and Regular Rhythm; No Murmur or Rub
GI: Soft, Non Tender, Non Distended and Normal Bowel Sounds; No Organomegaly
Rectal: Deferred by Provider
Musculoskeletal: No Clubbing, No Cyanosis and No Edema
Skin: No Rash
Neuro: non verbal
Psych: Calm
# Acute hypoxic and and probable acute on chronic hypercapnic respiratory failure
� Rapidly improved with BiPAP at night
� Suspect secondary to bronchitis with thick secretions along with possible underlying BIA
� CT imaging with atelectasis, no evidence of pneumonia
� At high risk of aspiration
� Improved aeration, gases upon BiPAP at night
� Can continue empiric antibiotics
� Follow-up sputum cultures
� Continue DuoNebs
� COVID and flu negative
� Continue wean O2
�Pulmonary consulted for follow-up outpatient
#History of ALS
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
�-on riluzole
�Educated family on risk of BiPAP with weakness, acknowledge and accepts risk of BiPAP on patient
� Family refusing tracheostomy at this time
�Family acknowledges if patient does decompensate on BiPAP, will opt for comfort
# Hyponatremia
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
-Continue to monitor
#Depression/anxiety
-Continue citalopram
#HLD: continue statin
#GERD
-Omeprazole continue
#hxt of ALS
-on riluzole
#Hypothyroidism: cont Levoxyl
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
#on Tube Feed Nutren 1.5 1 can four times a day.
nutrition consulted.
-pause Bipap, while on Tube feed.
FULL/Lovenox
Total time spent on today's encounter was 50 minutes which included time spent in counseling the patient/family regarding diagnosis and treatment plan as listed above, goals of care, and symptom management. Case was discussed with nursing staff,
specialists, and care coordinators/case management. All labs and imaging personally reviewed by me. Remainder the time spent in detailed review of previous records, lab data, imaging, and other medical provider documentation.
Anticipated Discharge: 24 - 48 hours
Subjective/Interval History
-
Date of Service: July 11, 2024
no acute events, off bipap with improvement in o2 sats and hypercarbia; does have thick secretions
Objective Data
-
Labs:
Laboratory Results
07/11/24
03:17
WBC 7.6
Hgb 11.3 L
Hct 33.9 L
Plt Count 238
Sodium 134 L
Potassium 4.2
Chloride 94 L
Carbon Dioxide 36 H
BUN 34 H
Creatinine 0.4 L
Glucose 104 H
Calcium 9.9
Vital Signs:
Vital Signs
Temp Pulse Resp BP Pulse Ox
98.1 F 93 14 117/75 94
07/11/24 11:30 07/11/24 14:30 07/11/24 14:30 07/11/24 13:00 07/11/24 14:19
I&O
07/10/24 07/11/24 07/12/24
06:59 06:59 06:59
Intake Total 220 / 220 780 / 780
Output Total 150 / 150
Balance 70 / 70 780 / 780
Review of Systems
-
History Source: Patient
All other systems: Not reviewed unless documented
Data Reviewed
-
Total Time Spent with Patient (in minutes): 44
CT Scan: Report Reviewed by me
Labs: Labs Reviewed by me
--- NOTE | 2024-07-11 14:53 | CM ---
Patient with Hx ALS and PEG with Dx Acute hypoxic and probable acute on chronic hypercapnic respiratory failure. O2 2L. Receiving IV Abx. PT/OT Evals pending. Per nursing; patient is non-verbal.
Spoke with patient's daughter Samantha;
the patient resides with her Dtr Samantha, son in law and grand-Dtr in a 3 story house with first floor bedroom.
Patient was alert, non-verbal at baseline.
The patient requires total care and has 24 hour caregivers, including daughter and private caregivers: M-F 10-6, Fri & Sun night, Sat 5 hours. Daughter is applying for caregivers through the Waiver program.
The patient has been sleeping in a regular bed bed, daughter plans on ordering hospital bed today- offered to order and Dtr wants to do this herself to get the features she wants.
Patient is turned in bed by caregivers, assisted to get up to recliner, power w/c, manual w/c.
The patient receives Nutren tube feeds via PEG 4x/day.
DME - NIV (machine not working, new one ordered), BiPAP, Cough Assist, Suction, PEG feeds, Power &manual w/c, meliton lift (caregivers still learning how to operate). Patient does not have home O2.
Current with [facility] for PT/OT
Has Palliative Care
Prior [facility]
PCP - Humberto Crowder
Pharmacy - [facility]
Daughter requests ambulance transport home.
Plan watch for any O2 needs at d/c.
Plan home with resumption [facility].
[2024-07-11] MEDS: PROTONIX IV 40 MG IV (15:44)
[2024-07-11] MEDS: NSS (PRESERVATIVE FREE) 10 ML IV (15:44)
[2024-07-11] MEDS: LOVENOX 40 MG SC (17:38)
--- NOTE | 2024-07-11 20:15 | RESPNOTE ---
NIF and Vital capacity attempted with assistance of family member, pt was unable to create seal around the mouth piece and follow instructions to preform
[2024-07-11] MEDS: LIORESAL 5 MG TUBE (20:33)
[2024-07-11] MEDS: NON-FORMULARY ITEM 50 MG TUBE (21:24)
[2024-07-12] VITALS (14 sets, daily range): BP systolic 116–131; BP diastolic 53–75; PULSE 2–93
[2024-07-12] MEDS: UNASYN IV ×3 (03:43→14:57)
[2024-07-12 04:21] LABS: Venous Blood Gas HCO3 36.8 mmol/L (22-27); Venous Blood Gas O2 Sat % 98.1 %; Venous Blood Gas pCO2 53 mmHg (35-48); Venous Blood Gas pH 7.45 (7.32-7.43); Venous Blood Gas pO2 195 mmHg (30-50)
[2024-07-12 04:22] LABS: Venous Blood Gas O2 Therapy 6L/min
[2024-07-12 04:23] LABS: Hematocrit 34.3 % (37.0-47.0); Hemoglobin 11.4 g/dL (12.0-16.0); Mean Corp Hgb Conc. 33.2 g/dL (33.0-37.0); Mean Corpuscular Hgb 32.1 pg (27.0-31.0); Mean Corpuscular Volume 96.6 fL (81.0-99.0); Platelet Count 226 10^3/uL (130-400); Red Blood Cell Count 3.55 10^6/uL (4.20-5.40); Red Cell Dist. Width 12.8 % (11.5-14.5); White Blood Cell Count 12.2 10^3/uL (4.8-10.8)
[2024-07-12 04:50] LABS: Blood Urea Nitrogen 30 mg/dl (7-17); Carbon Dioxide 35 mmol/L (22-30); Chloride 98 mmol/L (98-107); Estimated Creatinine Clearance 58 ml/min; Glucose 134 mg/dl (70-99); Potassium 3.8 mmol/L (3.5-5.1); Sodium 138 mmol/L (135-145); eGFR > 60.00
[2024-07-12] MEDS: SYNTHROID 50 MCG TUBE (05:31)
--- NOTE | 2024-07-12 06:36 | PTCARENOTE ---
No acute events overnight. Daughter at bedside. Remained on the BIPAP.
[2024-07-12] MEDS: DUONEB 3 ML INH ×4 (07:27→19:51)
[2024-07-12] MEDS: SODIUM CHLORIDE 3% FOR INHALATION 1 VIAL INH ×2 (07:27→19:51)
--- NOTE | 2024-07-12 07:38 | RESPNOTE ---
NIF/VC-patient unable due to inability to create adequate seal on mouthpiece for results
[2024-07-12] MEDS: LEXAPRO 10 MG TUBE (08:45)
[2024-07-12] MEDS: ASPIR LOW (ENTERIC COATED) 81 MG PO (08:45)
[2024-07-12] MEDS: CRESTOR 10 MG TUBE (08:45)
[2024-07-12] MEDS: B COMPLEX w/VITAMIN C 1 CAPLET TUBE (08:45)
[2024-07-12] MEDS: NON-FORMULARY ITEM 1 MG TUBE (08:46)
[2024-07-12] MEDS: PROTONIX IV 40 MG IV (08:47)
[2024-07-12] MEDS: NSS (PRESERVATIVE FREE) 10 ML IV (08:48)
--- NOTE | 2024-07-12 09:13 | PTCARENOTE ---
Pt AAO non verbal daughters at bedside. VSS pt at 30 degrees post bolous feed and meds. ABT running
--- NOTE | 2024-07-12 10:06 | PTOTSP ---
Reviewed chart and s/w family. Pt is dependent for care, family does PROM, and was getting home therapies to instruct family in use of Marisa lift and power chair. No acute rehab needs. Will sign off.
--- NOTE | 2024-07-12 14:23 | W.PN.HOSP.TC ---
Today's Communication/Plan
-
f/u pulm recs
niv qhs, family understands risks including as patient cannot safely take off NIV
echo
Assessment / Plan
Assessment / Plan
Physical Exam
General: Well Developed, Well Nourished and No Apparent Distress; on 2L NC
HEENT: NormoCephalic, Moist mucous membranes and Atraumatic
Respiratory: Rhonchi
Cardiac: S1/S2 and Regular Rhythm; No Murmur or Rub
GI: Soft, Non Tender, Non Distended and Normal Bowel Sounds; No Organomegaly
Rectal: Deferred by Provider
Musculoskeletal: No Clubbing, No Cyanosis and No Edema
Skin: No Rash
Neuro: non verbal
Psych: Calm
# Acute hypoxic and and probable acute on chronic hypercapnic respiratory failure
� Rapidly improved with BiPAP at night
� Suspect secondary to bronchitis with thick secretions along with possible underlying BIA
� CT imaging with atelectasis, no evidence of pneumonia
� At high risk of aspiration
� Improved aeration, gases upon BiPAP at night
� Can continue empiric antibiotics
� Follow-up sputum cultures
� Continue DuoNebs
� COVID and flu negative
� Continue wean O2
�Pulmonary consulted for follow-up outpatient
-chest therapy
-le dopplers negative
#History of ALS
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
�-on riluzole
�Educated family on risk of BiPAP with weakness, acknowledge and accepts risk of BiPAP on patient
� Family refusing tracheostomy at this time
�Family acknowledges if patient does decompensate on BiPAP, will opt for comfort
# Hyponatremia
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
-Continue to monitor
#Depression/anxiety
-Continue citalopram
#HLD: continue statin
#GERD
-Omeprazole continue
#hxt of ALS
-on riluzole
#Hypothyroidism: cont Levoxyl
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
#on Tube Feed Nutren 1.5 1 can four times a day.
nutrition consulted.
-pause Bipap, while on Tube feed.
FULL/Lovenox
Anticipated Discharge: Within 24 hours
Subjective/Interval History
-
Date of Service: July 12, 2024
no acute events
Objective Data
-
Labs:
Laboratory Results
07/12/24
04:12
WBC 12.2 H
Hgb 11.4 L
Hct 34.3 L
Plt Count 226
Sodium 138
Potassium 3.8
Chloride 98
Carbon Dioxide 35 H
BUN 30 H
Creatinine 0.4 L
Glucose 134 H
Calcium 10.0
Vital Signs:
Vital Signs
Temp Pulse Resp BP Pulse Ox
98.8 F 86 16 122/61 94
07/12/24 11:30 07/12/24 11:08 07/12/24 11:08 07/12/24 10:00 07/12/24 11:00
I&O
07/11/24 07/12/24 07/13/24
06:59 06:59 06:59
Intake Total 220 / 220 1370 / 1370
Output Total 150 / 150 1150 / 1150
Balance 70 / 70 220 / 220
Review of Systems
-
History Source: Patient
All other systems: Not reviewed unless documented
Data Reviewed
-
Total Time Spent with Patient (in minutes): 44
CT Scan: Report Reviewed by me
Labs: Labs Reviewed by me
--- NOTE | 2024-07-12 14:39 | W.PN.PUL3 ---
Today's Communication / Plan
-
Continue BiPAP 15/5-bedtime and as needed
Monitor mental status
DC Unasyn-transition to cefepime-Pseudomonas in the sputum. Follow sensitivities
Continue secretion clearance intervention
Aspiration precaution
No need for further NIF or FVC monitoring patient unable to perform maneuver
Updated DNR status after discussion with daughters
Will follow
Assessment
-
Assessment: 74-year-old female non-smoker with a past medical history of ALS, GERD, anxiety, DM type II, history of cryptococcal meningitis, hypothyroidism, hydrocephalus s/p FILTER WORKER shunt, history of sleep apnea and PMR who presents with shortness of
breath. Patient uses BiPAP at home. Also follows with palliative care. She was hypoxic at home with SpO2 in the mid 70s on room air without improvement on BiPAP. Also been having a productive cough with dark sputum as per family. She uses a
BiPAP as needed at home. In the ER she was afebrile to 98.5 �F, pulse rate 88, respiratory rate 16, BP 147/87 and saturating 88% on 6 L/min. Saturations improved to 98% on a nonrebreather. Labs showed leukocytosis to 15.8, Hb 13, blood gas with
acute on chronic hypercapnia with pH 7.32, pCO2 77, serum sodium 132, creatinine 0.4, glucose 202, troponin negative at <0.012, and COVID antigen negative. Flu A/B swab also negative and blood cultures were collected. CXR showed low lung volumes
with possible left basilar opacity. Subsequent CT chest showed a mild�moderately elevated left hemidiaphragm with compressive atelectasis with no obvious pneumonia. She was given nebulized acetylcysteine in the ER with DuoNepapito and Unasyn. She was
admitted to the IMU for further care and pulmonary service consulted for additional management/recommendations.
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
Impression:
#Shortness of breath with suspected acute bronchitis/URI in setting of ALS
#Acute anemia
#Acute respiratory failure with hypoxia + hypercapnia
#Hypochloremic, hyponatremia
#Metabolic alkalosis as compensation for chronic respiratory acidosis
#ALS on BiPAP at home
#DM type II
#Reported history of sleep apnea
#History of PMR
#GERD
#Anxiety
#Hydrocephalus
Plan:
- Patient has no evidence of pneumonia on CT chest and appears to be experiencing acute bronchitis causing her shortness of breath/hypoxia in the setting of ALS
- Continue with antibiotics, currently on Unasyn D#3-will switch to cefepime 07/12/2024 until Pseudomonas sensitivities available.
-Sputum culture positive with Pseudomonas aeruginosa's 07/11/2024
-Legionella and Streptococcus antibodies urine antigens negative.
-Blood cultures negative
-Influenza negative
Continue secretion clearance interventions:
- Pulmonary toilet is hernandez � start nebulized 3% BID with prn 3% for additional assistance with expectoration with DuoNebs QID and deep NT suctioning after 3% treatments
- Continue with supplemental oxygen and maintain SpO2 >90-94%, weaning down O2 dose as tolerated
- Continue aspiration precautions keeping HOB >30-45�
- Patient gets nutrition through PEG tube which is okay to continue for now unless respiratory status deteriorates further
- prn nebulized bronchodilators - not currently bronchospastic
- NIF + vital capacity-patient unable to perform maneuver. Discontinue.
- Patient is currently refusing tracheostomy at this time
- Trend blood gas to assure pH and pCO2 remain stable
Chronic Hypercapnic respiratory failure due to neuromuscular weakness/ALS.
CT scan noted 07/10/2024: Low lung volumes. Mild to moderate elevation of the left hemidiaphragm. Compressive atelectasis of the left lower lobe. No evidence for pneumonia
Decompensating in the setting of bronchitis.
Continue BiPAP as able with naps and at bedtime. May be also used as needed for increased work of breathing
ABG 07/12/2024: 7.45/53/195 (improved)
Avoid sedatives
- Continue riluzole
- Continue to trend serum sodium with goal 135�145
- DVT ppx
Pulmonary service will continue to follow along.
-
Dr. Israel updated 2 daughters at the bedside in detail. 07/12/2024
Discussed with them goals of care. DNR has been instituted.
Data:
CT chest with IV contrast 07/10/2024: Low lung volumes with mild to moderate elevation of the left hemidiaphragm causing compressive atelectasis on the left lower lobe, and mild bibasilar subsegmental atelectasis.
Subjective Data
-
Date of Service:
Date of Service: July 12, 2024
Chief Complaint: Pulmonary Follow Up (Acute hypercapnic respiratory failure.)
Subjective:
No new complaints
Review of Systems
Cardiopulmonary: Dyspnea and Dyspnea on Exertion
Objective Data
Data Reviewed
Vital Signs / I&O / Oxygen:
Vital Signs
Temp Pulse Resp BP Pulse Ox
98.8 F 86 16 122/61 94
07/12/24 11:30 07/12/24 11:08 07/12/24 11:08 07/12/24 10:00 07/12/24 11:00
Intake and Output
07/11/24 07/12/24 07/13/24
06:59 06:59 06:59
Intake Total 220 / 220 1370 / 1370
Output Total 150 / 150 1150 / 1150
Balance 70 / 70 220 / 220
SaO2 94
Nasal Cannula flow liters per 2
minute
Labs/Micro/Reports
Lab Data
07/12/24 04:12
07/12/24 04:12
Microbiology
07/11/24 12:36 Sputum Respiratory Culture - Preliminary
Pseudomonas aeruginosa
07/11/24 12:36 Sputum Gram Stain - Preliminary
07/10/24 16:44 Blood/Venous Blood Culture - Preliminary
No Growth in 24 hours- Final report to follow
07/10/24 16:44 Blood/Venous Blood Culture - Preliminary
No Growth in 24 hours- Final report to follow
07/11/24 00:19 Urine Legionella Urinary Antigen - Final
Negative for Legionella pneumophila Serogroup 1 antigen.
A negative result does not rule out the possiblity of
Legionella infection due to other serogroups or species of
Legionella. Clinical correlation is recommended.
07/11/24 00:19 Urine Streptococcus pneumoniae Antigen (M - Final
Negative for Streptococcus pneumoniae antigen.
A negative result does not exclude infection with
Streptococcus pneumoniae. Clinical correlation is
recommended.
07/10/24 12:11 Nasal Swab Influenza Types A & B (KARIE) - Final
Negative for Influenza A & B, NAAT
Negative results must be combined with clinical observations
and patient history.
Nucleic Acid Amplification test (NAAT)performed on the
[employer] platform.
[2024-07-12] MEDS: STERILE WATER FOR INJECTION 10 ML IV ×2 (15:30→21:13)
[2024-07-12] MEDS: MAXIPIME 1000 MG IV ×2 (15:31→21:13)
--- NOTE | 2024-07-12 16:03 | CM ---
Patient with Hx ALS and PEG with Dx Acute hypoxic and probable acute on chronic hypercapnic respiratory failure. O2 2L. BiPAP. Positive sputum culture- new IV Abx ordered today. Home O2 Assessment ordered- to be done when closer to d/c. PT:
Therapy not warranted.
Spoke with patient's daughter Samantha; the patient's new NIV machine will be delivered to their home by [email or web address]. Daughter aware that patient will need Home O2 assessment prior to d/c- she agrees to home O2 through [email or web address] if needed.
Daughter requests ambulance transport home.
Spoke with BRENDA Moreau Liaison; she will arrange home O2 through [facility] if O2 is needed at d/c.
Plan watch for any O2 needs at d/c.
Plan home with resumption [id number].
[2024-07-12] MEDS: LOVENOX 40 MG SC (17:47)
[2024-07-12] MEDS: NON-FORMULARY ITEM 50 MG TUBE (21:12)
[2024-07-12] MEDS: LIORESAL 5 MG TUBE (21:13)
[2024-07-13] VITALS (9 sets, daily range): BP systolic 106–140; BP diastolic 53–77; PULSE 2–90
[2024-07-13] MEDS: MAXIPIME 1000 MG IV ×2 (04:16→09:01)
[2024-07-13] MEDS: STERILE WATER FOR INJECTION 10 ML IV ×2 (04:16→09:01)
[2024-07-13 04:25] LABS: Hematocrit 33.3 % (37.0-47.0); Hemoglobin 11.1 g/dL (12.0-16.0); Mean Corp Hgb Conc. 33.3 g/dL (33.0-37.0); Mean Corpuscular Hgb 32.5 pg (27.0-31.0); Mean Corpuscular Volume 97.4 fL (81.0-99.0); Mean Platelet Volume 10.2 fL (7.4-10.4); Platelet Count 209 10^3/uL (130-400); Red Blood Cell Count 3.42 10^6/uL (4.20-5.40); Red Cell Dist. Width 12.8 % (11.5-14.5); White Blood Cell Count 9.4 10^3/uL (4.8-10.8)
[2024-07-13 04:42] LABS: Blood Urea Nitrogen 34 mg/dl (7-17); Calcium 9.9 mg/dl (8.4-10.2); Carbon Dioxide 35 mmol/L (22-30); Chloride 102 mmol/L (98-107); Estimated Creatinine Clearance 58 ml/min; Glucose 118 mg/dl (70-99); Potassium 4.2 mmol/L (3.5-5.1); Sodium 138 mmol/L (135-145); eGFR > 60.00
[2024-07-13] MEDS: SYNTHROID 50 MCG TUBE (05:50)
--- NOTE | 2024-07-13 06:28 | PTCARENOTE ---
No acute events overnight. Remained on Bipap 15/5 2 liters. Daughter at bedside participating in care.
[2024-07-13] MEDS: DUONEB 3 ML INH (07:21)
[2024-07-13] MEDS: SODIUM CHLORIDE 3% FOR INHALATION 1 VIAL INH (07:21)
[2024-07-13] MEDS: B COMPLEX w/VITAMIN C 1 CAPLET TUBE (08:47)
[2024-07-13] MEDS: LEXAPRO 10 MG TUBE (08:49)
[2024-07-13] MEDS: CRESTOR 10 MG TUBE (08:49)
[2024-07-13] MEDS: NSS (PRESERVATIVE FREE) 10 ML IV (08:49)
[2024-07-13] MEDS: PROTONIX IV 40 MG IV (08:50)
[2024-07-13] MEDS: LOW STRENGTH ASPIRIN 81 MG TUBE (09:07)
[2024-07-13] MEDS: NON-FORMULARY ITEM 50 MG TUBE (09:07)
--- NOTE | 2024-07-13 10:28 | W.PN.PUL3 ---
Today's Communication / Plan
-
Now critically ill
Transition to high flow oxygen
Hold BiPAP due to aspiration
Continue cefepime
If patient will continue with care and there is no progression to comfort as the patient is discussing with the rest of the family will add metronidazole
Hold tube feeding
Will place left lung down
Continue secretion clearance interventions
Poor prognosis
Assessment
-
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
breath. Patient uses BiPAP at home. Also follows with palliative care. She was hypoxic at home with SpO2 in the mid 70s on room air without improvement on BiPAP. Also been having a productive cough with dark sputum as per family. She uses a
BiPAP as needed at home. In the ER she was afebrile to 98.5 �F, pulse rate 88, respiratory rate 16, BP 147/87 and saturating 88% on 6 L/min. Saturations improved to 98% on a nonrebreather. Labs showed leukocytosis to 15.8, Hb 13, blood gas with
acute on chronic hypercapnia with pH 7.32, pCO2 77, serum sodium 132, creatinine 0.4, glucose 202, troponin negative at <0.012, and COVID antigen negative. Flu A/B swab also negative and blood cultures were collected. CXR showed low lung volumes
with possible left basilar opacity. Subsequent CT chest showed a mild�moderately elevated left hemidiaphragm with compressive atelectasis with no obvious pneumonia. She was given nebulized acetylcysteine in the ER with Rodrigo and Vaishnavi. She was
admitted to the IMU for further care and pulmonary service consulted for additional management/recommendations.
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
Impression:
#Shortness of breath with suspected acute bronchitis/URI in setting of ALS
#Acute anemia
#Acute respiratory failure with hypoxia + hypercapnia
#Hypochloremic, hyponatremia
#Metabolic alkalosis as compensation for chronic respiratory acidosis
#ALS on BiPAP at home
#DM type II
#Reported history of sleep apnea
#History of PMR
#GERD
#Anxiety
#Hydrocephalus
Plan:
-Unfortunately, now critically ill 07/13/2024- Acute aspiration event.
Hypoxemic down to the 70s.
Multiple attempts to NT suctioning without success.
Despite 100% FiO2 pulse ox remains in the 80s. Patient has increased work of breathing, accessory muscle usage.
I was emergently called to evaluate her.
We did oral suctioning and tube feedings were suctioned from her airways.
Stat chest x-ray performed: Showed new right lower lobe pneumonia. Severe. Small amount of left lower lobe infiltrate as well. No pneumothorax.
Not a candidate for BiPAP due to aspiration
Patient is noncommunicative
Daughter at the bedside: Unfortunately not many options at this point.
As previously mentioned, She is DNR-tracheotomy not an option.
Keep head of the bed elevation
Based on chest x-ray we will place left lung down.
Transition to high flow oxygen.
Suggest morphine for her increased work of breathing. She likely is becoming more hypercapnic.
Daughter will discuss with rest of family members I discussed whether comfort measures will be next step.
-
- Patient has no evidence of pneumonia on CT chest and appears to be experiencing acute bronchitis causing her shortness of breath/hypoxia in the setting of ALS
- Continue with antibiotics, currently on Unasyn D#3-
switched to cefepime 07/12/2024 until Pseudomonas sensitivities available.
If family would like to continue with care then we will add metronidazole to regimen.
-Sputum culture positive with Pseudomonas aeruginosa's 07/11/2024
-Legionella and Streptococcus antibodies urine antigens negative.
-Blood cultures negative
-Influenza negative
Continue secretion clearance interventions:
- Pulmonary toilet is hernandez �continue nebulized 3% BID with prn 3% for additional assistance with expectoration with DuoNebs QID and deep NT suctioning after 3% treatments
- Continue aspiration precautions keeping HOB >30-45�
- Patient gets nutrition through PEG tube which is okay to continue for now unless respiratory status deteriorates further
- prn nebulized bronchodilators - not currently bronchospastic
- NIF + vital capacity-patient unable to perform maneuver. Discontinue.
-No need to repeat blood gas as BiPAP at this point is contraindicated and there is no option for intubation. Continue symptomatic care.
Chronic Hypercapnic respiratory failure due to neuromuscular weakness/ALS.
CT scan noted 07/10/2024: Low lung volumes. Mild to moderate elevation of the left hemidiaphragm. Compressive atelectasis of the left lower lobe. No evidence for pneumonia
Decompensating in the setting of bronchitis.
Hold BiPAP as above per
ABG 07/12/2024: 7.45/53/195 (improved)
Avoid sedatives
- Continue riluzole
- DVT ppx
Pulmonary service will continue to follow along.
-
Dr. Israel updated 2 daughters at the bedside in detail. 07/12/[address] Israel extensively updated daughter at the bedside 07/13/2024 about critical situation. Poor prognosis. Recommending some morphine to decrease work of breathing. She will discuss with the rest of the family.
Discussed with them goals of care. DNR has been instituted.
-
Critical care statement: A total of 35 minutes of critical care time was provided for this patient today. This includes management of unstable vital signs, evaluation of the patient at bedside, reviewing the patient's pertinent medical records
including ventilator settings, arterial blood gases, radiographs, microbiology, laboratory evaluations and discussion with primary team, critical care nursing, and respiratory therapy.
-
Data:
CT chest with IV contrast 07/10/2024: Low lung volumes with mild to moderate elevation of the left hemidiaphragm causing compressive atelectasis on the left lower lobe, and mild bibasilar subsegmental atelectasis.
Subjective Data
-
Date of Service:
Date of Service: July 13, 2024
Chief Complaint: Pulmonary Follow Up (Acute hypercapnic respiratory failure.)
Subjective:
Patient noncommunicative at baseline
I was emergently called to see her at the bedside- Due to acute worsening hypoxemia. Possibly aspiration.
Review of Systems
General: Other (Unable to obtain, patient noncommunicative at baseline)
Objective Data
Data Reviewed
Vital Signs / I&O / Oxygen:
Vital Signs
Temp Pulse Resp BP Pulse Ox
97.9 F 83 14 106/53 94
07/13/24 07:30 07/13/24 07:29 07/13/24 07:29 07/13/24 06:00 07/13/24 07:29
Intake and Output
07/12/24 07/13/24 07/14/24
06:59 06:59 06:59
Intake Total 1370 / 1370 1210 / 1210
Output Total 1150 / 1150
Balance 220 / 220 1210 / 1210
SaO2 94
Nasal Cannula flow liters per 2
minute
Physical Exam
General: Respiratory Distress (Severe)
HEENT: Normocephalic
Cardiovascular: S1-S2
Respiratory: Crackles, Rhonchi and Accessory Resp Muscle Use (Severe)
GI: Soft and Non Distended
Neurology: Awake, Other ( poor cough effort) and Other (Noncommunicative)
Labs/Micro/Reports
Lab Data
07/13/24 04:09
07/13/24 04:09
Microbiology
07/11/24 12:36 Sputum Respiratory Culture - Final
Pseudomonas aeruginosa
07/11/24 12:36 Sputum Gram Stain - Final
07/10/24 16:44 Blood/Venous Blood Culture - Preliminary
No Growth in 48 hours- Final report to follow
07/10/24 16:44 Blood/Venous Blood Culture - Preliminary
No Growth in 48 hours- Final report to follow
07/11/24 00:19 Urine Legionella Urinary Antigen - Final
Negative for Legionella pneumophila Serogroup 1 antigen.
A negative result does not rule out the possiblity of
Legionella infection due to other serogroups or species of
Legionella. Clinical correlation is recommended.
07/11/24 00:19 Urine Streptococcus pneumoniae Antigen (M - Final
Negative for Streptococcus pneumoniae antigen.
A negative result does not exclude infection with
Streptococcus pneumoniae. Clinical correlation is
recommended.
07/10/24 12:11 Nasal Swab Influenza Types A & B (KARIE) - Final
Negative for Influenza A & B, NAAT
Negative results must be combined with clinical observations
and patient history.
Nucleic Acid Amplification test (NAAT)performed on the
[employer] platform.
--- NOTE | 2024-07-13 10:58 | W.PN.UPDATE ---
Update Note
Progress Note Update
Discussed with 2 daughters at the bedside. Unfortunately patient not responding well. Increased work of breathing.
They discussed with the rest of the family and they would like to proceed with comfort measures.
Morphine has been added.
Primary team updated.
Will discontinue unnecessary medications
Okay with oxygen
No additional recommendation from the pulmonary perspective.
[2024-07-13] MEDS: MORPHINE SULFATE 2 MG IV ×5 (11:04→22:59)
[2024-07-13] MEDS: DUONEB INH (11:14)
--- NOTE | 2024-07-13 12:17 | PTCARENOTE ---
Assumed care of patient at beginning of this shift from previous RN with daughter at bedside. Morning meds given. Patient non-verbal but was able to smile when daughter mentioned grandsons name. At approximately 10:00, daughter came to this nurse as
patient's POx dropped to the 70s. NRB placed on patient; RT called to room who attempted to suctioned but had difficulty passing suction catheter. Dr Israel on unit and came to room. Stat portable CXR done and read at bedside by Dr Israel. Other
family members came to room; Dr Israel spoke with them. Morphine 2mg then ordered and given. Dr Lai up on unit; comfort measures now ordered.
--- NOTE | 2024-07-13 13:22 | PTCARENOTE ---
Patient incontinent of bowel and bladder; cleaned and repositioned for comfort. Heart monitor and pulse ox removed at family request.
[2024-07-13] MEDS: ATIVAN 0.5 MG IV ×2 (13:54→22:09)
--- NOTE | 2024-07-13 15:27 | W.PN.HOSP.TC ---
Today's Communication/Plan
-
Comfort care measures
Assessment / Plan
Assessment / Plan
Physical Exam
General: Well Developed, Well Nourished and No Apparent Distress; on 2L NC
HEENT: NormoCephalic, Moist mucous membranes and Atraumatic
Respiratory: Rhonchi
Cardiac: S1/S2 and Regular Rhythm; No Murmur or Rub
GI: Soft, Non Tender, Non Distended and Normal Bowel Sounds; No Organomegaly
Rectal: Deferred by Provider
Musculoskeletal: No Clubbing, No Cyanosis and No Edema
Skin: No Rash
Neuro: non verbal
Psych: Calm
# Acute hypoxic and and probable acute on chronic hypercapnic respiratory failure
#Tracheobronchitis
� Rapidly improved with BiPAP at night
� Hold antibiotics
� Aspirin this morning, 07/13�mid 70%
� Appreciate pulmonary on board
� Transition to comfort after discussion with family
#History of ALS
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
�-on riluzole
�Educated family on risk of BiPAP with weakness, acknowledge and accepts risk of BiPAP on patient
� Family refusing tracheostomy at this time
�Family acknowledges if patient does decompensate on BiPAP, will opt for comfort
# Hyponatremia
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
-Continue to monitor
#Depression/anxiety
-Continue citalopram
#HLD: continue statin
#GERD
-Omeprazole continue
#hxt of ALS
-on riluzole
#Hypothyroidism: cont Levoxyl
#Hx of cryptococcal meningitis s/p bilateral BUSINESS PROFESSOR shunts
#on Tube Feed Nutren 1.5 1 can four times a day.
nutrition consulted.
-pause Bipap, while on Tube feed.
FULL/Lovenox
Dispo�transition to comfort
Anticipated Discharge: Within 24 hours
Subjective/Interval History
-
Date of Service: July 13, 2024
Patient noted to be desaturating in the 70s, found to have aspirated
Objective Data
-
Labs:
Laboratory Results
07/13/24
04:09
WBC 9.4
Hgb 11.1 L
Hct 33.3 L
Plt Count 209
Sodium 138
Potassium 4.2
Chloride 102
Carbon Dioxide 35 H
BUN 34 H
Creatinine 0.4 L
Glucose 118 H
Calcium 9.9
Vital Signs:
Vital Signs
Temp Pulse Resp BP Pulse Ox
97.9 F 94 14 140/77 93
07/13/24 07:30 07/13/24 13:00 07/13/24 13:00 07/13/24 12:00 07/13/24 13:00
I&O
07/12/24 07/13/24 07/14/24
06:59 06:59 06:59
Intake Total 1370 / 1370 1210 / 1210
Output Total 1150 / 1150
Balance 220 / 220 1210 / 1210
Review of Systems
-
History Source: Patient
All other systems: Not reviewed unless documented
Data Reviewed
-
Total Time Spent with Patient (in minutes): 44
CT Scan: Report Reviewed by me
Labs: Labs Reviewed by me
--- NOTE | 2024-07-13 16:18 | PTCARENOTE ---
Patient was given ativan earlier; currently resting comfortably. Family at bedside. They declined for RT to decrease oxygen. Dr Lai in to talk with the family. Per Dr Lai, other family members are flying here today and they would like to
wait before starting morphine drip.
--- NOTE | 2024-07-13 16:51 | CM ---
Patient with Hx ALS and PEG with Dx Acute hypoxic and probable acute on chronic hypercapnic respiratory failure. High flow O2. Comfort measures.
Met with patient's daughter Samantha; she says she met with bolt maker today and feels supported by the staff and their family that is gathering at the bedside.
Plan comfort care.
[2024-07-13] MEDS: TYLENOL 650 MG PO (23:48)
[2024-07-14] MEDS: MORPHINE SULFATE 2 MG IV ×6 (00:05→13:41)
[2024-07-14] MEDS: MORPHINE 100 IV (00:38)
--- NOTE | 2024-07-14 01:47 | PTCARENOTE ---
Patient actively dying with family at bedside. High flow nasal cannula weaned to 2 liters NC. PRN morphine and ativan given. Started on step 1 of morphine gtt. Patient with agonal breathing and due to be transferred to [facility]. Family very upset that
patient being moved at this time. Emotional support provided and patient transferred to [facility].
[2024-07-14] MEDS: ATIVAN 0.5 MG IV (05:55)
[2024-07-14] MEDS: MORPHINE SULFATE 4 MG IV ×6 (08:07→23:29)
--- NOTE | 2024-07-14 14:11 | CHAP ---
Emotional and spiritual support provided. [place] family gathered at bedside. Ms. Osborne has received Sacrament of the Sick/Last Rites as requested.
--- NOTE | 2024-07-14 15:39 | W.PN.HOSP.TC ---
Addendum entered and electronically signed by Arvind Lai MD 07/16/24 16:25:
[id number]
Original Note:
Today's Communication/Plan
-
comfort care
Assessment / Plan
Assessment / Plan
Physical Exam
General: Well Developed, Well Nourished and No Apparent Distress; on 2L NC
HEENT: NormoCephalic, Moist mucous membranes and Atraumatic
Respiratory: Rhonchi
Cardiac: S1/S2 and Regular Rhythm; No Murmur or Rub
GI: Soft, Non Tender, Non Distended and Normal Bowel Sounds; No Organomegaly
Rectal: Deferred by Provider
Musculoskeletal: No Clubbing, No Cyanosis and No Edema
Skin: No Rash
Neuro: non verbal
Psych: Calm
# Acute hypoxic and and probable acute on chronic hypercapnic respiratory failure
#Tracheobronchitis
� Rapidly improved with BiPAP at night
� Hold antibiotics
� Aspirin this morning, 07/13�mid 70%
� Appreciate pulmonary on board
� Transition to comfort after discussion with family
#History of ALS
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
�-on riluzole
�Educated family on risk of BiPAP with weakness, acknowledge and accepts risk of BiPAP on patient
� Family refusing tracheostomy at this time
�Family acknowledges if patient does decompensate on BiPAP, will opt for comfort
# Hyponatremia
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
-Continue to monitor
#Depression/anxiety
-Continue citalopram
#HLD: continue statin
#GERD
-Omeprazole continue
#hxt of ALS
-on riluzole
#Hypothyroidism: cont Levoxyl
#Hx of cryptococcal meningitis s/p bilateral GARBAGE PERSON shunts
#on Tube Feed Nutren 1.5 1 can four times a day.
nutrition consulted.
-pause Bipap, while on Tube feed.
FULL/Lovenox
Dispo�transition to comfort
Anticipated Discharge: 24 - 48 hours
Subjective/Interval History
-
Date of Service: July 14, 2024
comfort
Objective Data
-
Vital Signs:
Vital Signs
Temp Pulse Resp BP Pulse Ox
97.9 F 94 14 140/77 93
07/13/24 07:30 07/13/24 13:00 07/13/24 13:00 07/13/24 12:00 07/13/24 13:00
I&O
07/13/24 07/14/24 07/15/24
06:59 06:59 06:59
Intake Total 1210 / 1210
Balance 1210 / 1210
Review of Systems
-
History Source: Patient
All other systems: Not reviewed unless documented
Data Reviewed
-
Total Time Spent with Patient (in minutes): 44
CT Scan: Report Reviewed by me
Labs: Labs Reviewed by me
--- NOTE | 2024-07-14 20:00 | PTCARENOTE ---
Assumed care of patient from previous RN -- patient maintained on comfort measures. Morphine drip maintained on step 3 at this time. Family is present and surrounding patient. Patient with increased WOB and gasping during rounding at change of
shift. Provided patient with breakthrough dose of Morphine per protocol, see MAR. Patient appeared to be more comfortable following breakthrough dose. Turned on Q2 turning schedule. Patient remains dry, no incontinence. Will monitor.
[2024-07-14 20:19] VITALS: BP 58/34
--- NOTE | 2024-07-14 22:00 | PTCARENOTE ---
Patient again experiencing increased WOB, increased frequency of gasping/grunting and using accessory muscles. More family members just [place], requesting at this time to wait 30 minutes to provide breakthrough dose of Morphine in
order to give these family members a few minutes with patient. Returned in 30 minutes to provide breakthrough dose, see MAR. No changes to dyspnea following dose, additional dose provided per protocol, see MAR. Will continue to monitor.
[2024-07-15] MEDS: MORPHINE 100 IV (00:26)
[2024-07-15] MEDS: ATIVAN 0.5 MG IV (00:28)
[2024-07-15] MEDS: MORPHINE SULFATE 6 MG IV ×2 (00:28→01:12)
[2024-07-15] MEDS: ROBINUL 0.2 MG IV (01:12)
--- NOTE | 2024-07-15 04:43 | W.PN.DEATH ---
Pronouncement of
-
Called to see patient to pronounce.
No spontaneous heart tones or respirations noted.
Patient not responsive to verbal stimuli.
Patient is pronounced .
Time of : 04:15
Date of : 07/15/24
Cause of : acute hypoxic resp failure, tracheobronchitis, ALS
Family Notified: Yes (Family present at the bedside)
--- NOTE | 2024-07-15 05:11 | PTCARENOTE ---
Family asking for this RN to come to evaluate patient. Family members stating they could not feel a pulse on patient any longer. Upon assessment, patient found to be not breathing, no pulse and no heart sounds present. Patient passed at 04:15am with
family surrounding her. KASIE Muñoz notified and pronounced patient. Family is at bedside at this time.
== END 2024-07-15 09:10 | disposition expired | DRG 189 ==
LOC: 3 WEST ACU 14:23
PROVIDERS: Registered Nurse; ADMITTING PHYSICIAN Internal Medicine; EMERGENCY PHYSICIAN Emergency Medicine; FAMILY PHYSICIAN Internal Medicine Geriatric Medicine; OTHER PHYSICIAN Internal Medicine Critical Care Medicine
PROC: 5A09357 Assistance with Respiratory Ventilation, Less than 24 Consecutive Hours, Continuous Positive Airway Pressure (ICD-10-PCS; 2024-07-10)
DX: J96.01 Acute respiratory failure with hypoxia (principal); E22.2 Syndrome of inappropriate secretion of antidiuretic hormone; G91.9 Hydrocephalus, unspecified; G12.21 Amyotrophic lateral sclerosis; J98.11 Atelectasis; J20.8 Acute bronchitis due to other specified organisms; J96.22 Acute and chronic respiratory failure with hypercapnia; Z51.5 Encounter for palliative care; Z66 Do not resuscitate; M35.3 Polymyalgia rheumatica; E03.9 Hypothyroidism, unspecified; E11.9 Type 2 diabetes mellitus without complications; I10 Essential (primary) hypertension; E78.2 Mixed hyperlipidemia; K21.9 Gastro-esophageal reflux disease without esophagitis; F41.9 Anxiety disorder, unspecified; F32.A Depression, unspecified; E83.52 Hypercalcemia; E87.8 Other disorders of electrolyte and fluid balance, not elsewhere classified; G44.89 Other headache syndrome; B96.5 Pseudomonas (aeruginosa) (mallei) (pseudomallei) as the cause of diseases classified elsewhere; G47.33 Obstructive sleep apnea (adult) (pediatric); D64.9 Anemia, unspecified; Z11.52 Encounter for screening for COVID-19; Z88.5 Allergy status to narcotic agent; Z79.890 Hormone replacement therapy; Z79.82 Long term (current) use of aspirin; Z98.2 Presence of cerebrospinal fluid drainage device; Z82.5 Family history of asthma and other chronic lower respiratory diseases; Z74.01 Bed confinement status
CPT/HCPCS: 71045; 71260; 80048; 82805; 84484; 85025; 85027; 87040; 87070; 87077; 87186; 87205; 87449; 87502; 87811; 87899; 93005; 93306; 93970; 94640; 94660; 94669; 96365; 97167; 99291; Q9967